=== PATIENT | female | born 1960 | race Caucasian/White ===

== ENCOUNTER → 2016-09-03 | Outpatient (CLI) | payer OTHER ==
[2016-09-03 12:31] LABS: BLOOD UREA NITROGEN 20 mg/dl (7-18); BUN/CREATININE RATIO 18.3 (10-20); CALCIUM 8.9 mg/dl (8.5-10.1); CARBON DIOXIDE 31 mmol/L (21-32); CHLORIDE 105 mmol/L (98-107); GLUCOSE 223 mg/dl (70-99); POTASSIUM 4.5 mmol/L (3.5-5.1); SODIUM 141 mmol/L (136-145)
[2016-09-03 12:33] LABS: ESTIMATED AVERAGE GLUCOSE 212 mg/dl; HA1C FLAG Normal (Normal)
[2016-09-03 12:42] LABS: THYROID STIMULATING HORMONE 0.462 uIu/ml (0.300-4.500)
[2016-09-03 13:11] LABS: RATIO 216.1 mcg/mg (0-30.0)
== END | disposition home or self-care (01) ==
LOC: C.LAB1850 10:38
PROVIDERS: ATTEND Internal Medicine Endocrinology, Diabetes & Metabolism
DX: E10.9 Type 1 diabetes mellitus without complications (principal)

== ENCOUNTER → 2016-09-26 | Outpatient (CLI) | payer OTHER ==
[2016-09-26 10:23] LABS: PATIENT HEIGHT 167.6 cm
[2016-09-26 12:45] LABS: BUN/CREATININE RATIO 18.8 (10-20); CALCIUM 8.8 mg/dl (8.5-10.1); CREATININE 1.1 mg/dl (0.60-1.20); POTASSIUM 4.4 mmol/L (3.5-5.1)
[2016-09-26 12:46] LABS: PHOSPHORUS 3.8 mg/dl (2.5-4.9)
[2016-09-26 13:00] LABS: URINE TOTAL PROTEIN 10.3 mg/dl (0-11.9)
[2016-09-26 16:56] LABS: URINE APPEARANCE CLEAR (CLEAR); URINE BILIRUBIN NEG (NEG); URINE COLOR YELLOW; URINE EPITHELIAL CELL AUTO 0-5 /lpf (0-5); URINE NITRITE NEG (NEG); URINE PH 5.5 (4.5-7.5); URINE SPECIFIC GRAVITY 1.007 (1.000-1.030); UROBILINOGEN NEG (NEG)
[2016-09-26 17:08] LABS: URINE PROTIEN/CREAT RATIO 0.3 (0-0.2)
[2016-09-26 17:14] LABS: MANUAL MICROSCOPIC REQUIRED? NO; REVIEW REQ? NO
[2016-09-27 01:46] LABS: CREATININE 1.1 mg/dl (0.6-1.2); URINE TOTAL PROTEIN CALC 139.1 mg/24 hr (0-149.1)
[2016-09-28 07:41] LABS: RATIO 1.9 mcg/mg (0-30.0)
== END | disposition home or self-care (01) ==
LOC: C.LAB1850 10:09
PROVIDERS: ATTEND Internal Medicine Nephrology
DX: R80.9 Proteinuria, unspecified (principal)

== ENCOUNTER → 2016-10-22 | Outpatient (CLI) | payer OTHER ==
--- NOTE | 2016-10-22 14:34 | DIAGNOSTIC IMAGING REPORT ---
THYROID ULTRASOUND CLINICAL HISTORY: Thyroid nodule. COMPARISON STUDY: None. TECHNIQUE: Sonography of the thyroid gland was performed. FINDINGS: The right thyroid lobe measures 5.1 x 1.7 x 2.1 cm and the left lobe measures 6.3 x 2.1 x 1.9 cm. There are multiple thyroid nodules. The largest within the right lobe is within the upper pole. This is a solid nodule measures 0.9 x 0.8 x 0.8 cm. There is a 1.7 x 1.2 x 1.1 cm mixed cystic and solid lower pole nodule with the left lobe. There is also a 1.7 x 1 x 1.4 cm left mid pole nodule which is isoechoic. Note is made of a 1.6 x 0.9 x 1.1 cm isoechoic nodule within the anterior aspect of the left mid pole. IMPRESSION: Findings consistent with a multinodular thyroid gland. The sonographic appearance is nonspecific but none of these nodules have suspicious imaging characteristics. Electronically signed by: Hamlet Gaxiola M.D. 10/22/2016 2:33 PM Dictated Date/Time: 10/22/2016 2:29 PM
== END | disposition home or self-care (01) ==
LOC: C.ULTR 13:52
PROVIDERS: ATTEND Physician Assistant
DX: E04.1 Nontoxic single thyroid nodule (principal)

== ENCOUNTER → 2017-01-14 | Outpatient (CLI) | payer OTHER ==
[2017-01-15 06:42] LABS: ESTIMATED AVERAGE GLUCOSE 212 mg/dl; HA1C FLAG Normal (Normal)
== END | disposition home or self-care (01) ==
LOC: C.LAB1850 15:17
PROVIDERS: ATTEND Physician Assistant
DX: E10.9 Type 1 diabetes mellitus without complications (principal)

== ENCOUNTER → 2017-05-05 | Outpatient (CLI) | payer OTHER ==
[2017-05-05 13:41] LABS: BLOOD UREA NITROGEN 12 mg/dl (7-18); BUN/CREATININE RATIO 9.5 (10-20); CALCIUM 9.1 mg/dl (8.5-10.1); CARBON DIOXIDE 27 mmol/L (21-32); CHLORIDE 96 mmol/L (98-107); CREATININE 1.29 mg/dl (0.60-1.20); GLUCOSE 501 mg/dl (70-99); PHOSPHORUS 3.5 mg/dl (2.5-4.9); POTASSIUM 4.4 mmol/L (3.5-5.1); SODIUM 132 mmol/L (136-145)
[2017-05-05 14:06] LABS: BETA-HYDROXYBUTYRATE 0.69 mg/dL (0.2-2.81)
== END | disposition home or self-care (01) ==
LOC: C.LABPBG 09:59
PROVIDERS: ATTEND Internal Medicine Nephrology
DX: N18.3 Chronic kidney disease, stage 3 (moderate) (principal)